=== PATIENT | male | born 1955 | race Caucasian/White ===

== ENCOUNTER 2019-05-13 11:44 | Emergency (ER) | payer OTHER ==
[~2019-05-13] VITALS: Ht 195.6 cm; Wt 140.6 kg
[~2019-05-13 11:44] MED LIST: ALBU90OI6 INH; AMLO10 PO; Flecainide Acet50 MG PO; HYDCHL25 PO
[2019-05-13] MEDS ORDERED: OMEPRAZOLE20 MG PO (12:14)
[2019-05-13] MEDS ORDERED: PRED10 PO (12:16)
[2019-05-13 12:26] LABS: BASOPHILS PERCENT AUTO 0 % (0-2); EOSINOPHILS PERCENT AUTO 4 % (0-6); Hematocrit 42.3 % (37.0-53.0); IMMATURE GRAN ABSOLUTE AUTO 0.01 K/mm3 (0.00-0.10); IMMATURE GRAN PERCENT AUTO 0 % (0-1); LYMPHOCYTES PERCENT AUTO 24 % (21-46); MONOCYTES ABSOLUTE AUTO 0.45 K/mm3 (0.16-1.47); MONOCYTES PERCENT AUTO 9 % (4-13); Mean Corpuscular HGB 29.7 pg (26.0-34.0); Mean Corpuscular HGB Conc 33.1 g/dL (31.5-36.5); Mean Corpuscular Volume 90 fL (80-100); Mean Platelet Volume 11.1 fL (9.1-12.4); NEUTROPHILS ABSOLUTE AUTO 3.23 K/mm3 (1.96-9.15); NEUTROPHILS PERCENT AUTO 64 % (41-73); Platelet Count 297 K/mm3 (150-400); RDW Coefficient Variation 13.5 % (11.7-14.2); Red Blood Cell Count 4.71 M/mm3 (4.30-5.90); White Blood Cell Count 5.09 K/mm3 (4.00-11.30)
[2019-05-13 12:50] LABS: Alanine Aminotransfer (ALT/SGP 26 U/L (12-78); Albumin, Blood 3.5 g/dL (3.4-5.0); Albumin/Globulin Ratio 0.7 (0.8-1.8); Alk Phos 114 U/L (50-136); Anion Gap 5 mmol/L (6-16); Aspartate Aminotrans (AST/SGOT 33 U/L (12-37); Bilirubin, Total 0.5 mg/dL (0.1-1.0); Blood Urea Nitrogen 20 mg/dL (8-24); Bun/Creatinine Ratio 21.3 (12.0-20.0); CO2, Blood 29 mmol/L (21-32); Calcium, Blood 9.5 mg/dL (8.5-10.1); Chloride, Blood 104 mmol/L (98-108); Creatinine, Blood 0.94 mg/dL (0.60-1.20); Globulin, Blood 4.8 g/dL (2.2-4.0); Glomerular Filtration Rate >60 (60-); Glucose, Blood 100 mg/dL (70-99); Potassium, Blood 4.5 mmol/L (3.5-5.5); Sodium, Blood 138 mmol/L (136-145); Total Protein, Blood 8.3 g/dL (6.4-8.2); Troponin I <0.015 ng/mL (0.000-0.040)
== END 2019-05-13 14:35 | disposition home or self-care (01) ==
LOC: ER 11:44
PROVIDERS: Emergency Medicine
DX: S00.81XA Abrasion of other part of head, initial encounter (principal); S00.31XA Abrasion of nose, initial encounter; Z91.040 Latex allergy status; Z88.8 Allergy status to other drugs, medicaments and biological substances; Z79.899 Other long term (current) drug therapy; Z79.52 Long term (current) use of systemic steroids; Z87.891 Personal history of nicotine dependence; W18.30XA Fall on same level, unspecified, initial encounter
CPT/HCPCS: 36415; 80053; 84484; 85025; 93005; 93010; 99284-25; J7120

== ENCOUNTER → 2021-01-21 | Outpatient (CLI) | payer OTHER ==
[~2021-01-21] MED LIST changes: +OMEPRAZOLE20 MG PO; +PRED10 PO
== END | disposition home or self-care (01) ==
LOC: LAB 09:18 → LAB SHORT 09:18
DX: L30.8 Other specified dermatitis (principal)
CPT/HCPCS: 88305; 88312; 88313

== ENCOUNTER 2021-07-08 18:48 | Inpatient (IN) | payer OTHER ==
[~2021-07-08] VITALS: Ht 195.6 cm; Wt 150.0 kg
[2021-07-08] MEDS ORDERED: METO25 PO (19:08)
[2021-07-08] MEDS ORDERED: ATOR40TA PO (19:08)
[2021-07-08 19:45] LABS: BASOPHILS ABSOLUTE AUTO 0.01 K/mm3 (0.00-0.23); BASOPHILS PERCENT AUTO 0 % (0-2); EOSINOPHILS ABSOLUTE AUTO 0.31 K/mm3 (0.00-0.68); EOSINOPHILS PERCENT AUTO 4 % (0-6); Hematocrit 37.9 % (37.0-53.0); Hemoglobin 12.4 g/dL (13.5-17.5); IMMATURE GRAN ABSOLUTE AUTO 0.02 K/mm3 (0.00-0.10); IMMATURE GRAN PERCENT AUTO 0 % (0-1); LYMPHOCYTES ABSOLUTE AUTO 1.14 K/mm3 (0.84-5.20); LYMPHOCYTES PERCENT AUTO 15 % (21-46); MONOCYTES ABSOLUTE AUTO 0.65 K/mm3 (0.16-1.47); MONOCYTES PERCENT AUTO 9 % (4-13); Mean Corpuscular HGB 29.3 pg (26.0-34.0); Mean Corpuscular HGB Conc 32.7 g/dL (31.5-36.5); Mean Corpuscular Volume 90 fL (80-100); Mean Platelet Volume 11.2 fL (9.1-12.4); NEUTROPHILS ABSOLUTE AUTO 5.25 K/mm3 (1.96-9.15); NEUTROPHILS PERCENT AUTO 71 % (41-73); Platelet Count 411 K/mm3 (150-400); RDW Coefficient Variation 13.4 % (11.7-14.2); RDW Standard Deviation 44.2 fL (35.1-46.3); Red Blood Cell Count 4.23 M/mm3 (4.30-5.90); White Blood Cell Count 7.38 K/mm3 (4.00-11.30)
[2021-07-08 20:09] LABS: Anion Gap 7 mmol/L (6-16); Blood Urea Nitrogen 23 mg/dL (8-24); Bun/Creatinine Ratio 23.3 (12.0-20.0); CO2, Blood 30 mmol/L (21-32); Calcium, Blood 9.8 mg/dL (8.5-10.1); Chloride, Blood 101 mmol/L (98-108); Creatinine, Blood 0.99 mg/dL (0.60-1.20); Glomerular Filtration Rate >60 (60-); Glucose, Blood 93 mg/dL (70-99); Potassium, Blood 3.6 mmol/L (3.5-5.5); Sodium, Blood 138 mmol/L (136-145)
[2021-07-09 05:58] LABS: BASOPHILS ABSOLUTE AUTO 0.01 K/mm3 (0.00-0.23); BASOPHILS PERCENT AUTO 0 % (0-2); EOSINOPHILS ABSOLUTE AUTO 0.31 K/mm3 (0.00-0.68); EOSINOPHILS PERCENT AUTO 5 % (0-6); Hematocrit 35.2 % (37.0-53.0); Hemoglobin 10.9 g/dL (13.5-17.5); IMMATURE GRAN ABSOLUTE AUTO 0.01 K/mm3 (0.00-0.10); IMMATURE GRAN PERCENT AUTO 0 % (0-1); LYMPHOCYTES ABSOLUTE AUTO 0.68 K/mm3 (0.84-5.20); LYMPHOCYTES PERCENT AUTO 11 % (21-46); MONOCYTES PERCENT AUTO 10 % (4-13); Mean Corpuscular HGB 29.2 pg (26.0-34.0); Mean Corpuscular Volume 94 fL (80-100); Mean Platelet Volume 10.4 fL (9.1-12.4); NEUTROPHILS ABSOLUTE AUTO 4.51 K/mm3 (1.96-9.15); NEUTROPHILS PERCENT AUTO 74 % (41-73); Platelet Count 354 K/mm3 (150-400); RDW Coefficient Variation 13.6 % (11.7-14.2); Red Blood Cell Count 3.73 M/mm3 (4.30-5.90); White Blood Cell Count 6.12 K/mm3 (4.00-11.30)
[2021-07-09 06:28] LABS: Anion Gap 4 mmol/L (6-16); Blood Urea Nitrogen 19 mg/dL (8-24); Bun/Creatinine Ratio 19.7 (12.0-20.0); CO2, Blood 29 mmol/L (21-32); Calcium, Blood 8.4 mg/dL (8.5-10.1); Chloride, Blood 107 mmol/L (98-108); Creatinine, Blood 0.96 mg/dL (0.60-1.20); Glomerular Filtration Rate >60 (60-); Glucose, Blood 88 mg/dL (70-99); Potassium, Blood 3.3 mmol/L (3.5-5.5); Sodium, Blood 140 mmol/L (136-145)
--- NOTE | 2021-07-09 12:00 | NUR ---
PT ARRIVED TO UNIT AT APROX 0830 FROM ER. SBA TO BED FROM [facility]. R LEG WITH LARGE AREA OF REDNESS/SWELLING/WEEPING SS DRAINAGE OPEN TO AIR. PT DENIES PAIN.
--- NOTE | 2021-07-09 19:50 | NUR ---
PT TO OR SURGERY RNs IN ROOM TO BRING PT BACK TO OR.
[2021-07-09 21:08] LABS: SARS-Cov-2 (COVID-19) PCR, MMC NEGATIVE (NEGATIVE)
[2021-07-09 23:00] LABS: Hematocrit 33.6 % (37.0-53.0); Hemoglobin 10.8 g/dL (13.5-17.5)
[2021-07-09 23:17] LABS: International Normalized Ratio 1.01; Prothrombin Time Results 10.9 Sec (9.7-11.5)
--- NOTE | 2021-07-10 06:16 | NUR ---
SHIFT SUMMARY POD#1 RIGHT PERIPATELLAR HEMATOMA EVACUATION DROWSY/ANXIOUS. PT REPORTING MINIMAL DISCOMFORT POST OP, NO PAIN OR NAUSEA MEDICATIONS ADMINISTERED SINCE ARRIVAL BACK TO FLOOR. DRESSING TO RLE C/D/I. PPP, DENIES N/T, MOVES ALL TOES WELL. IVF + ABX PER ORDERS. PT REFUSING TO ATTEMPT TO USE URINAL POST OP, WILL CONTINUE TO ENCOURAGE AND FACILITATE PT TO ATTEMPT TO URINATE. PT CURRENTLY SITTING UP IN BED THIS AM EATING A SNACK WITH CALL LIGHT IN REACH.
--- NOTE | 2021-07-10 18:08 | NUR ---
PT HAS DENIED NEED FOR PAIN MED THROUGHOUT SHIFT. DRESSING CLEAN. PT STANDBY ASSIST TO CHAIR
--- NOTE | 2021-07-11 02:30 | NUR ---
DR VILLEGAS ROUNDED TONIGHT AND REMOVED DRAIN-CHANGED DRESSINGS.PT IN NO DISTRESS,HOPING FOR DISCHARGE HOME SOON.
[2021-07-11 04:59] LABS: Anion Gap 3 mmol/L (6-16); Blood Urea Nitrogen 23 mg/dL (8-24); Bun/Creatinine Ratio 21.5 (12.0-20.0); CO2, Blood 31 mmol/L (21-32); Calcium, Blood 8.9 mg/dL (8.5-10.1); Chloride, Blood 104 mmol/L (98-108); Creatinine, Blood 1.07 mg/dL (0.60-1.20); Glomerular Filtration Rate >60 (60-); Glucose, Blood 89 mg/dL (70-99); Potassium, Blood 3.9 mmol/L (3.5-5.5); Sodium, Blood 138 mmol/L (136-145)
--- NOTE | 2021-07-11 13:31 | NUR ---
REPORT PASSED TO ERON ESCOBEDO.
[2021-07-11] MEDS ORDERED: Acetaminophen325 M1 PO (14:29)
--- NOTE | 2021-07-11 15:24 | NUR ---
REVIEWED DISCHARGE INSTRUCTIONS INCLUDING WOUND CARE & AMBULATING WITH WALKER. PATIENT VERBALIZED UNDERSTANDING. DISCHARGE TO HOME WITH SPOUSE.
== END 2021-07-11 15:30 | disposition home or self-care (01) | DRG 605 ==
LOC: ER 18:48 → ERHOLD 18:49 → SURS 18:49
PROVIDERS: Emergency Medicine; Internal Medicine; Orthopaedic Surgery; ADMIT Family Medicine
PROC: 0JCN0ZZ Extirpation of Matter from Right Lower Leg Subcutaneous Tissue and Fascia, Open Approach (ICD-10-PCS; principal; 2021-07-09 12:45)
DX: S80.01XA Contusion of right knee, initial encounter (principal); I48.0 Paroxysmal atrial fibrillation; I10 Essential (primary) hypertension; E66.01 Morbid (severe) obesity due to excess calories; Z98.890 Other specified postprocedural states; Z91.041 Radiographic dye allergy status; Z88.8 Allergy status to other drugs, medicaments and biological substances; Z79.899 Other long term (current) drug therapy; D64.9 Anemia, unspecified; D47.3 Essential (hemorrhagic) thrombocythemia; E78.5 Hyperlipidemia, unspecified; W18.30XA Fall on same level, unspecified, initial encounter
CPT/HCPCS: 36415; 73701; 80048; 85014; 85018; 85025; 85610; 85730; 87070; 87075; 87205; 96365-59; 96366; 96367; 96376; 97116; 97161; 99285-25; A9270; G0378; J0690; J1100; J1885; J2405; J2704; J3010; J3370; J7030; J7050; J7120; Q9967; U0004

== ENCOUNTER → 2025-11-11 | Outpatient (CLI) | payer OTHER ==
[~2025-11-11] MED LIST changes: +ATOR40TA PO; +Acetaminophen325 M1 PO; +METO25 PO
== END ==
LOC: LAB SHORT 14:03 → LAB 14:03
DX: L76.82 Other postprocedural complications of skin and subcutaneous tissue (principal)
CPT/HCPCS: 87070; 87205